=== PATIENT | female | born 1990 | race Caucasian/White ===

== ENCOUNTER 2020-10-27 18:11 | Emergency (ER) | payer SELFPAY ==
[2020-10-27 18:20] VITALS: BP 157/79
--- NOTE | 2020-10-27 18:43 | Event Note ---
ED Screening Note Date of service: 10/27/20 Time: 18:40 ED Screening Note: 30-year-old obese female presents to the emergency room stating she feels like a ball is in her chest that has been going on for a month. Patient states that today it seems to have gotten worse with shortness of breath. Patient states walking makes her have shortness of breath and lying back makes her chest discomfort worse. Patient denies any fever no chills no nausea no vomiting. Patient states that she sometimes feels like her heart is racing. Her last menstrual period was 10/24/2020. She denies any past medical history currently takes no medications on a daily basis and has no known drug allergies. Patient currently does not have a primary care provider. This initial assessment/diagnostic orders/clinical plan/treatment(s) is/are subject to change based on patients health status, clinical progression and re- assessment by fellow clinical providers in the ED. Further treatment and workup at subsequent clinical providers discretion. Patient/guardian urged not to elope from the ED as their condition may be serious if not clinically assessed and managed. Initial orders include:
[2020-10-27 19:06] LABS: Basophils % (Auto) 0.5 % (0.0-1.8); Eosinophils # (Auto) 0.1 K/mm3 (0.0-0.4); Eosinophils % (Auto) 0.9 % (0.0-4.3); Hematocrit 37.8 % (30.3-42.9); Hemoglobin 12.9 gm/dl (10.1-14.3); Lymphocytes # (Auto) 3.7 K/mm3 (1.2-5.4); Lymphocytes % (Auto) 38.4 % (13.4-35.0); Mean Corpuscular HGB Conc 34 % (30-34); Mean Corpuscular Volume 91 fl (79-97); Monocytes # (Auto) 0.4 K/mm3 (0.0-0.8); Platelet Count 267 K/mm3 (140-440); Red Blood Count 4.17 M/mm3 (3.65-5.03)
[2020-10-27 19:28] LABS: Alanine Aminotransferase 16 units/L (7-56); Albumin 4.4 g/dL (3.9-5); Blood Urea Nitrogen 10 mg/dL (7-17); Calcium 9.1 mg/dL (8.4-10.2); Hemolysis Index 8
--- NOTE | 2020-10-27 19:30 | XRay Report ---
CHEST 2 VIEWS INDICATION / CLINICAL INFORMATION: CHEST discomfort and sob. COMPARISON: None available. FINDINGS: SUPPORT DEVICES: None. HEART / MEDIASTINUM: No significant abnormality. LUNGS / PLEURA: No significant pulmonary or pleural abnormality. No pneumothorax. ADDITIONAL FINDINGS: No significant additional findings. IMPRESSION: 1. No acute findings. Signer Name: Hira Pérez MD Signed: 10/27/2020 7:26 PM Workstation Name: [id number]
[2020-10-27 19:36] LABS: BUN/Creatinine Ratio 17
[2020-10-27] MEDS ORDERED: IBUPROFEN 800 MG TAB PO ONE (20:12)
--- NOTE | 2020-10-27 20:27 | Emergency Department Report ---
ED General Adult HPI - General Chief complaint: Dyspnea/Respdistress Stated complaint: CHEST PAINS DIFF BREATH Time Seen by Provider: 10/27/20 19:46 Source: patient Mode of arrival: Ambulatory Limitations: No Limitations - History of Present Illness Initial comments: 30-year-old obese female presents to the emergency room stating she feels like a ball is in her chest that has been going on for a month. Patient states that today it seems to have gotten worse with shortness of breath. Patient states walking makes her have shortness of breath and lying back makes her chest discomfort worse. Patient denies any fever no chills no nausea no vomiting. Patient states that she sometimes feels like her heart is racing. Her last menstrual period was 10/24/2020. She denies any past medical history currently takes no medications on a daily basis and has no known drug allergies. Patient currently does not have a primary care provider. pain is described as 3/10 , exacerbated by deep breathing and palpation, pt denies fall injury or trauma. - Related Data Home Medications Medication Instructions Recorded Confirmed Last Taken Vit-Fe Fumar-FA [ 1 each PO QDAY 02/26/13 06/19/13 06/19/13 08:00 Vitamin] Previous Rx's Medication Instructions Recorded Last Taken Type Ibuprofen [Motrin 800 MG tab] 800 mg PO Q8HR PRN #30 tablet 10/27/20 Unknown Rx Allergies Allergy/AdvReac Type Severity Reaction Status Date / Time No Known Allergies Allergy Verified 04/08/13 13:35 ED Review of Systems ROS: Stated complaint: CHEST PAINS DIFF BREATH Other details as noted in HPI Constitutional: denies: chills, fever Eyes: denies: eye pain, eye discharge, vision change ENT: denies: ear pain, throat pain Respiratory: denies: cough, shortness of breath, wheezing Cardiovascular: chest pain Endocrine: no symptoms reported Gastrointestinal: denies: abdominal pain, nausea, diarrhea Genitourinary: denies: urgency, dysuria, discharge Musculoskeletal: denies: back pain, joint swelling, arthralgia Skin: denies: rash, lesions Neurological: denies: headache, weakness, paresthesias Psychiatric: denies: anxiety, depression Hematological/Lymphatic: denies: easy bleeding, easy bruising ED Past Medical Hx - Past Medical History Previous Medical History?: No Hx Hypertension: No Hx Diabetes: No Hx Deep Vein Thrombosis: No Hx Renal Disease: No Hx Sickle Cell Disease: No Hx Seizures: No Hx Asthma: No Hx HIV: No - Surgical History Past Surgical History?: No - Social History Smoking Status: Never Smoker Substance Use Type: None - Medications Home Medications: Home Medications Medication Instructions Recorded Confirmed Last Taken Type Vit-Fe Fumar-FA [ 1 each PO QDAY 02/26/13 06/19/13 06/19/13 08:00 History Vitamin] Ibuprofen [Motrin 800 MG tab] 800 mg PO Q8HR PRN #30 tablet 10/27/20 Unknown Rx ED Physical Exam - General Limitations: No Limitations General appearance: alert, in no apparent distress - Head Head exam: Present: atraumatic, normocephalic - Eye Eye exam: Present: normal appearance, EOMI Pupils: Present: normal accommodation - ENT ENT exam: Present: mucous membranes moist - Neck Neck exam: Present: normal inspection, full ROM. Absent: tenderness - Respiratory Respiratory exam: Present: normal lung sounds bilaterally, chest wall tenderness (anterior chest wall pain with palpation, no crepitus, no echymosis, no swelling, ). Absent: respiratory distress, wheezes - Cardiovascular Cardiovascular Exam: Present: regular rate, normal rhythm, normal heart sounds. Absent: systolic murmur, diastolic murmur, rubs, gallop - GI/Abdominal GI/Abdominal exam: Present: soft, guarding, normal bowel sounds. Absent: distended, tenderness, rebound, rigid, bruit, hernia - Rectal Rectal exam: Present: deferred - Extremities Exam Extremities exam: Present: normal inspection, full ROM, normal capillary refill. Absent: tenderness - Back Exam Back exam: Present: normal inspection, full ROM. Absent: CVA tenderness (R), CVA tenderness (L) - Neurological Exam Neurological exam: Present: alert, oriented X3, normal gait - Psychiatric Psychiatric exam: Present: normal affect, normal mood - Skin Skin exam: Present: warm, dry, intact, normal color. Absent: rash ED Course Vital Signs 10/27/20 18:18 Temperature 98.6 F Pulse Rate 98 H Respiratory 16 Rate Blood Pressure 157/79 O2 Sat by Pulse 99 Oximetry ED Medical Decision Making - Lab Data Result diagrams: 10/27/20 18:47 10/27/20 18:47 Labs 10/27/20 10/27/20 18:47 18:47 WBC 9.5 RBC 4.17 Hgb 12.9 Hct 37.8 MCV 91 MCH 31 MCHC 34 RDW 13.0 L Plt Count 267 Lymph % (Auto) 38.4 H Yuba % (Auto) 4.0 Eos % (Auto) 0.9 Baso % (Auto) 0.5 Lymph # (Auto) 3.7 Yuba # (Auto) 0.4 Eos # (Auto) 0.1 Baso # (Auto) 0.0 Seg Neutrophils % 56.2 Seg Neutrophils # 5.4 Sodium 138 Potassium 3.8 Chloride 101.8 Carbon Dioxide 23 Anion Gap 17 BUN 10 Creatinine 0.6 Estimated GFR > 60 BUN/Creatinine Ratio 17 Glucose 80 Calcium 9.1 Total Bilirubin 0.40 AST 14 ALT 16 Alkaline Phosphatase 123 Total Protein 7.3 Albumin 4.4 Albumin/Globulin Ratio 1.5 - EKG Data EKG shows normal: sinus rhythm, axis, intervals, QRS complexes, ST-T waves Rate: normal - EKG Data When compared to previous EKG there are: previous EKG unavailable Interpretation: normal EKG (NSR no ST Elevated [place] interp by ed attending ) - Radiology Data Radiology results: report reviewed, image reviewed FINDINGS: SUPPORT DEVICES: None. HEART / MEDIASTINUM: No significant abnormality. LUNGS / PLEURA: No significant pulmonary or pleural abnormality. No pneum othorax. ADDITIONAL FINDINGS: No significant additional findings. IMPRESSION: 1. No acute findings. Signer Name: Hira Pérez MD Signed: 10/27/2020 7:26 PM Workstation Name: [id number] Transcribed By: TL Dictated By: Hira Pérze MD Electronically Authenticated By: Hira Pérez MD Signed Date/Time: 10/27/201925 DD/ 25 TD/TT: - Medical Decision Making Chest x-ray is normal no opacities no infiltrate, EKG normal sinus rhythm no ST elevated [place]. Chest wall pain is reproducible to deep palpation. Symptoms are improved with NSAIDs given in ED. There is no respiratory distress, no shortness of breath no stridor no wheezing, no nausea vomiting no diaphoresis. Plan DC to home, NSAIDs as needed pain,, follow-up with primary care doctor in 2 to 3 days. Patient will return to ED should symptoms worsen. Patient DC'd in stable condition at this time. Critical care attestation.: If time is entered above; I have spent that time in minutes in the direct care of this critically ill patient, excluding procedure time. ED Disposition Clinical Impression: Anterior chest wall pain Disposition: DC-01 TO HOME OR SELFCARE Is pt being admited?: No Does the pt Need Aspirin: No Condition: Stable Instructions: Chest Wall Pain Additional Instructions: take medications as prescribed, follow up with your primary care doctor in 2-3 days, reten to emergency if symptoms worsen Prescriptions: Ibuprofen [Motrin 800 MG tab] 800 mg PO Q8HR PRN #30 tablet PRN Reason: Pain Referrals: PENNY HOWARD MD [Staff Physician] - 3-5 Days Forms: Work/School Release Form(ED) Time of Disposition: 20:33
--- NOTE | 2020-11-01 17:23 | Electrocardiograph Report ---
[facility] Test Date: 2020-10-27 Test Time: 18:53:27 Pat Name: MECCA ANTONIO Department: Room: Gender: F Documentation Writer: JIL : 1990 Requested By: LEIF AMAYA Order Number: [id number] Reading MD: Lupillo Bryan Measurements Intervals [place] Rate: 78 P: 40 NH: 162 QRS: 61 QRSD: 88 T: 30 QT: 357 QTc: 407 Interpretive Statements Sinus rhythm No previous ECG available for comparison Electronically Signed On 11-01-2020 17:23:38 EDT by Lupillo Bryan
== END 2020-10-27 20:40 | disposition home or self-care (01) ==
LOC: ED 18:11
DX: R07.89 Other chest pain (principal); Z79.899 Other long term (current) drug therapy
CPT/HCPCS: 36415; 71046; 80053; 85025; 93005

== ENCOUNTER 2022-02-05 02:57 | Outpatient (CLI) | payer SELFPAY ==
[2022-02-05 03:19] VITALS: BP 100/66
[2022-02-05] MEDS ORDERED: LACTATED RINGERS 1,000 ML IV ONE (03:40)
[2022-02-05 04:25] LABS: Bacteria,Urine 2+ /HPF (Negative); Mucus,Urine 1+ /HPF
[2022-02-05 05:10] LABS: Color,Urine Yellow (Yellow)
== END 2022-02-05 05:42 | disposition home or self-care (01) ==
LOC: TRG 02:57 → APU 03:01 → TRG 05:42
PROVIDERS: ATTEND Obstetrics & Gynecology
DX: O26.893 Other specified pregnancy related conditions, third trimester (principal); R10.9 Unspecified abdominal pain; Z3A.26 26 weeks gestation of pregnancy
CPT/HCPCS: 81001